=== PATIENT | male | born 1990 | race Caucasian/White ===

== ENCOUNTER 2018-09-22 20:26 | Emergency (ER) | payer BC ==
--- NOTE | 2018-09-22 20:35 | UC ---
Throat Pain/Nasal Emmanuel HPI - HPI Summary HPI Summary: 28 yo male presents with sore throat and subjective fever since this morning. His sore throat started about 4 days ago and has gotten progressively worse. Today he felt very warm and thinks he had a fever. Also has a mild headache today. He is eating and drinking well. Denies sinus symptoms, cough, rash, n/v. - History of Current Complaint Stated Complaint: FEVER, AND SORE THROAT Time Seen by Provider: 09/22/18 20:30 Hx Obtained From: Patient Onset/Duration: Sudden Onset Severity: Mild Pain Intensity: 4 Pain Scale Used: 0-10 Numeric - Allergies/Home Medications Allergies/Adverse Reactions: Allergies Allergy/AdvReac Type Severity Reaction Status Date / Time No Known Allergies Allergy Verified 09/22/18 20:38 PMH/Surg Hx/FS Hx/Imm Hx - Additional Past Medical History Additional PMH: None - Surgical History Surgical History: None - Family History Known Family History: Positive: None - Social History Occupation: Employed Full-time Lives: With Family Alcohol Use: Occasionally Substance Use Type: None Smoking Status (MU): Never Smoked Tobacco Review of Systems All Other Systems Reviewed And Are Negative: Yes Constitutional: Positive: Fever Skin: Positive: Negative Eyes: Positive: Negative ENT: Positive: Sore Throat Respiratory: Positive: Negative Cardiovascular: Positive: Negative Gastrointestinal: Positive: Negative Neurovascular: Positive: Negative Neurological: Positive: Negative Psychological: Positive: Negative Physical Exam - Summary Physical Exam Summary: GENERAL: NAD. WDWN. No pain distress. SKIN: No rashes, sores, lesions, or open wounds. HEENT: Head: AT/NC Eyes: Conjunctiva clear without inflammation or discharge. Ears: Hearing grossly normal. TMs intact, no bulging, erythema, or edema. Nose: Nasal mucosa pink and moist. NTTP maxillary and frontal sinus. Throat: Posterior oropharynx moderate erythema. No tonsillar enlargement. No exudates. Uvula midline. No hoarse voice or muffled voice. NECK: Supple. Mild TTP tonsillar LAD. CHEST: CTAB. No r/r/w. No accessory muscle use. Breathing comfortably and in no distress. CV: RRR. Without m/r/g. Pulses intact. Cap refill <2seconds NEURO: Alert. PSYCH: Age appropriate behavior. Triage Information Reviewed: Yes Vital Signs: Vital Signs: Temp Pulse Resp BP Pulse Ox 99.8 F 95 18 137/94 98 09/22/18 20:35 09/22/18 20:35 09/22/18 20:35 09/22/18 20:35 09/22/18 20:35 Laboratory Tests 09/22/18 20:46 Group A Strep Rapid Negative Vital Signs Reviewed: Yes Throat Pain/Nasal Course/Dx - Course Course Of Treatment: POC strep negative. Given his worsening symptoms and now fever will rx for anbx. - Differential Dx/Diagnosis Provider Diagnosis: Pharyngitis Discharge - Sign-Out/Discharge Documenting (check all that apply): Patient Departure All imaging exams completed and their final reports reviewed: No Studies - Discharge Plan Condition: Stable Disposition: HOME Prescriptions: Amoxicillin PO (*) [Amoxicillin 500 MG CAP*] 500 mg PO Q12H #14 cap Patient Education Materials: Pharyngitis (ED) Forms: *Work Release Referrals: No Primary Care Phys,NOPCP [Primary Care Provider] - Additional Instructions: If you develop a fever, shortness of breath, chest pain, new or worsening symptoms - please call your PCP or go to the ED. Your blood pressure was high at todays visit. Please see your primary provider within 4 weeks for recheck and re-evaluation. - Billing Disposition and Condition Condition: STABLE Disposition: Home
[2018-09-22 20:38] VITALS: BP 137/94
[2018-09-22] MEDS ORDERED: Amoxicillin PO (*) 500 MG CAP PO ONE (20:58)
--- NOTE | 2018-09-23 07:39 | UC ---
- Progress Note Progress Note: Call received by RN that pt's work note needs modification re drill weekend. Modified work note completed. Course/Dx - Diagnoses Provider Diagnoses: Pharyngitis Discharge - Sign-Out/Discharge Documenting (check all that apply): Post-Discharge Follow Up All imaging exams completed and their final reports reviewed: No Studies - Discharge Plan Condition: Stable Disposition: HOME Prescriptions: Amoxicillin PO (*) [Amoxicillin 500 MG CAP*] 500 mg PO Q12H #14 cap Patient Education Materials: Pharyngitis (ED) Forms: *Work Release Referrals: No Primary Care Phys,NOPCP [Primary Care Provider] - Additional Instructions: If you develop a fever, shortness of breath, chest pain, new or worsening symptoms - please call your PCP or go to the ED. Your blood pressure was high at todays visit. Please see your primary provider within 4 weeks for recheck and re-evaluation. - Billing Disposition and Condition Condition: STABLE Disposition: Home
== END 2018-09-22 21:00 | disposition home or self-care (01) ==
LOC: UCEAST 20:26
DX: J02.9 Acute pharyngitis, unspecified (principal)
CPT/HCPCS: 87651; 99202; A9270-GY; G0463

== ENCOUNTER 2019-05-23 19:14 | Emergency (ER) | payer BC ==
--- NOTE | 2019-05-23 19:28 | UC ---
Skin Complaint HPI - HPI Summary HPI Summary: 29 yo male presents with right lower leg area of redness, swelling, and pain. He tells me that for the past 2 days he has had an area on his right calf that has increased in size and redness. He lanced this at home and drained some white /yellow pus from it. He has some mild tenderness to the area. Denies fever, chills, injury, or bug bite. No hx of MRSA. States tetanus is UTD - History of Current Complaint Time Seen by Provider: 05/23/19 19:28 Stated Complaint: SKIN IRRITATION ON RT LEG Hx Obtained From: Patient Onset/Duration: Gradual Onset Onset Severity: Mild Current Severity: Mild Pain Intensity: 3 Pain Scale Used: 0-10 Numeric - Allergy/Home Medications Allergies/Adverse Reactions: Allergies Allergy/AdvReac Type Severity Reaction Status Date / Time No Known Allergies Allergy Verified 05/23/19 19:34 PMH/Surg Hx/FS Hx/Imm Hx - Additional Past Medical History Additional PMH: None - Surgical History Surgical History: None Surgery Procedure, Year, and Place: Knee. Tonsils - Family History Known Family History: Positive: None - Social History Occupation: Employed Full-time Lives: With Family Alcohol Use: Occasionally Substance Use Type: None Smoking Status (MU): Never Smoked Tobacco Review of Systems All Other Systems Reviewed And Are Negative: Yes Constitutional: Positive: Negative Skin: Positive: Other - Right leg rash Respiratory: Positive: Negative Cardiovascular: Positive: Negative Neurovascular: Positive: Negative Neurological: Positive: Negative Psychological: Positive: Negative Physical Exam - Summary Physical Exam Summary: GENERAL: NAD. WDWN. No pain distress. SKIN: RIGHT lateral calf with 7.0cm diameter of mild erythema with central 1.5cm area of induration and tenderness with mild edema. Mild warmth to the area. No open wound, streaking, or drainage. NECK: Supple. Nontender. No lymphadenopathy. CHEST: No accessory muscle use. Breathing comfortably and in no distress. CV: Pulses intact. Cap refill <2seconds NEURO: Alert. PSYCH: Age appropriate behavior. Triage Information Reviewed: Yes Vital Signs: Vital Signs: Temp Pulse Resp BP Pulse Ox 97.6 F 68 16 138/75 99 05/23/19 19:30 05/23/19 19:30 05/23/19 19:30 05/23/19 19:30 05/23/19 19:30 Vital Signs Reviewed: Yes Course/Dx - Course Course Of Treatment: Abscess. Discussed doing an I&D in the clinic today, but pt declined and prefers to try anbx. Will place him on Bactrim and have him return for I&D if the area comes to a head or continues to enlarge. - Diagnoses Provider Diagnosis: Abscess of right leg Discharge - Sign-Out/Discharge Documenting (check all that apply): Patient Departure All imaging exams completed and their final reports reviewed: No Studies - Discharge Plan Condition: Stable Disposition: HOME Prescriptions: Sulfamethox/Trimethoprim DS* [Bactrim DS 800/160 TAB*] 1 tab PO BID #14 tab Patient Education Materials: Abscess (ED) Referrals: No Primary Care Phys,NOPCP [Primary Care Provider] - Additional Instructions: If you develop a fever, shortness of breath, chest pain, new or worsening symptoms - please call your PCP or go to the ED immediately. If the area on your leg comes to a "head" - please return to have this drained - Billing Disposition and Condition Condition: STABLE Disposition: Home - Attestation Statements Provider Attestation: Per institutional requirements, I have reviewed the chart, however, I was not consulted specifically or made aware of this patient by the midlevel provider. I did not personally evaluate, interact with , or disposition this patient.
[2019-05-23 19:34] VITALS: BP 138/75
== END 2019-05-23 19:46 | disposition home or self-care (01) ==
LOC: UCEAST 19:14
DX: L02.415 Cutaneous abscess of right lower limb (principal)
CPT/HCPCS: 99212; G0463